=== PATIENT | female | born 1955 | race Caucasian/White ===

== ENCOUNTER 2017-03-30 05:09 | Emergency (ER) | payer MEDICAID ==
[~2017-03-30] VITALS: Ht 152.4 cm; Wt 54.5 kg
[~2017-03-30 05:09] MED LIST: ALPR0.5T8 PO; ASPI-556 PO; CALC600T2 PO; FERR1TAB45 PO; INSLAN SQ; INSU100C3 SQ; LEVO100 PO; MULT1TAB70 PO; PANT40TA25 PO; ROSU10 PO
[2017-03-30] MEDS ORDERED: INSU100V SQ (05:31)
[2017-03-30 05:33] LABS: GLUCOSE,POINT OF CARE 413 MG/DL (70-110)
[2017-03-30 05:59] LABS: HEMATOCRIT 44.4 % (36-46); HEMOGLOBIN 14.6 g/dL (12.0-16.0); MEAN CORPUSCULAR HEMOGLOBIN 29.9 pg (26.0-34.0); MEAN CORPUSCULAR HGB CONC 32.8 G/dL (31.0-37.0); MEAN CORPUSCULAR VOLUME 91 fL (80-100); PLATELET COUNT (AUTO) 148 K/uL (150-450); RED BLOOD CELL COUNT(AUTO) 4.88 MIL/uL (4.00-5.20); RED CELL DISTRIBUTION WIDTH 14.4 % (11.5-14.5)
[2017-03-30 06:08] LABS: CALCIUM, TOTAL 9.3 mg/dL (8.8-10.5); CREATININE 1.09 mg/dL (0.60-1.30); POTASSIUM 4.2 mmol/L (3.5-5.1)
[2017-03-30 06:14] LABS: ALBUMIN 3.8 g/dL (3.4-5.0); BILIRUBIN,TOTAL 0.8 mg/dL (0.1-1.0); TOTAL PROTEIN, SERUM 7.4 g/dL (6.4-8.2)
[2017-03-30 06:31] LABS: EOSINOPHILS % (MANUAL) 1 % (1-6); LYMPHOCYTES % (MANUAL) 22 % (22-44); MONOCYTES % (MANUAL) 5 % (2-9); SEGMENTED NEUTROPHILS % 72 % (40-70)
[2017-03-30 08:19] LABS: APPEARANCE,URINE CLEAR (CLEAR); BILIRUBIN,URINE NEGATIVE (NEGATIVE); GLUCOSE, URINE (UA) >=1000 mg/dL (NEGATIVE); KETONES,URINE 40 mg/dL (NEGATIVE); LEUKOCYTE ESTERASE ,URINE NEGATIVE (NEGATIVE); NITRATE,URINE NEGATIVE (NEGATIVE); OCCULT BLOOD,URINE NEGATIVE (NEGATIVE); PH,URINE 5.5 (5.0-8.0); PROTEIN,URINE NEGATIVE (NEGATIVE); UROBILINOGEN,URINE 0.2 mg/dL (<=1.0)
[2017-03-30 08:25] LABS: ANION GAP 11 mmol/L (8-16); CALCIUM, TOTAL 9.5 mg/dL (8.8-10.5); CARBON DIOXIDE 28 mmol/L (22-29); CHLORIDE 98 mmol/L (98-107); CREATININE 0.89 mg/dL (0.60-1.30); GLOMERULAR FILTR. RATE CALC > 60 mL/min (>60); GLUCOSE,RANDOM 322 mg/dL (70-110); POTASSIUM 4.1 mmol/L (3.5-5.1); SODIUM SERUM 137 mmol/L (136-145); UREA NITROGEN, BLOOD 26 mg/dL (7-18)
[2017-03-30 08:32] LABS: BACTERIA,URINE Rare /HPF (None Seen); RBC,URINE 0-2 /HPF (0-2); SQUAMOUS EPITHELIAL CELL,UR Rare /LPF (None Seen); WBC,URINE 0-2 /HPF (0-5)
[2017-03-30 09:00] VITALS: BP 123/70
== END 2017-03-30 09:44 | disposition home or self-care (01) ==
LOC: EMS 05:10
DX: E10.65 Type 1 diabetes mellitus with hyperglycemia (principal); E03.9 Hypothyroidism, unspecified; F17.210 Nicotine dependence, cigarettes, uncomplicated; Z79.4 Long term (current) use of insulin
CPT/HCPCS: 82962; 85007; 99284

== ENCOUNTER 2018-10-10 07:21 | Emergency (ER) | payer MEDICAID ==
[~2018-10-10] VITALS: Ht 160 cm; Wt 53.2 kg
[~2018-10-10 07:21] MED LIST changes: -INSLAN SQ; -INSU100C3 SQ; +INSU100V SQ; -ROSU10 PO; +ROSU10TA22 PO
[2018-10-10] MEDS ORDERED: INSU100I26 SQ (07:31)
[2018-10-10] MEDS ORDERED: ATOR10TA84 PO (07:34)
[2018-10-10] MEDS ORDERED: SODIUM CHLORIDE 0.9% 1,000 ML IV ONE ×2 (07:45→09:00)
[2018-10-10 08:07] LABS: BASOPHILS % (AUTO) 0.3 % (0.0-2.0); EOSINOPHILS % (AUTO) 1.7 % (1.0-6.0); HEMATOCRIT 43.3 % (36-46); HEMOGLOBIN 13.8 g/dL (12.0-16.0); LYMPHOCYTES # (AUTO) 1.2 K/uL (1.0-4.8); LYMPHOCYTES % (AUTO) 21.1 % (22.0-44.0); MEAN CORPUSCULAR VOLUME 94 fL (80-100); MONOCYTES # (AUTO) 0.3 K/uL (0.1-1.0); MONOCYTES % (AUTO) 6.2 % (2.0-9.0); NEUTROPHILS # (AUTO) 3.8 K/uL (1.8-7.7); NEUTROPHILS % (AUTO) 70.7 % (40.0-70.0); PLATELET COUNT (AUTO) 162 K/uL (150-450); RED BLOOD CELL COUNT(AUTO) 4.61 MIL/uL (4.00-5.20); RED CELL DISTRIBUTION WIDTH 13.8 % (11.5-14.5)
[2018-10-10 08:21] LABS: ALANINE AMINOTRANSFERASE 25 U/L (12-78); ALBUMIN 3.7 g/dL (3.4-5.0); ALKALINE PHOSPHATASE 93 U/L (46-116); ANION GAP 17 mmol/L (8-16); ASPARTATE AMINOTRANSFERASE 20 U/L (15-37); CALCIUM, TOTAL 9.2 mg/dL (8.8-10.5); CARBON DIOXIDE 21 mmol/L (22-29); CHLORIDE 97 mmol/L (98-107); CREATININE 1.24 mg/dL (0.60-1.30); GLOMERULAR FILTR. RATE CALC 44 mL/min (>60); POTASSIUM 3.6 mmol/L (3.5-5.1); SODIUM SERUM 135 mmol/L (136-145); TOTAL PROTEIN, SERUM 7.3 g/dL (6.4-8.2); UREA NITROGEN, BLOOD 33 mg/dL (7-18)
[2018-10-10 08:28] LABS: GLUCOSE,RANDOM 496 mg/dL (70-110)
[2018-10-10] MEDS ORDERED: INSULIN REGULAR, HUMAN 100 UNITS/ML IVP ONE (08:30)
[2018-10-10] MEDS ORDERED: POTASSIUM CHLORIDE 20 MEQ ER TABLET PO ONE (08:30)
[2018-10-10 08:49] LABS: ACETONE,BLOOD TRACE (NEGATIVE)
[2018-10-10 10:06] LABS: APPEARANCE,URINE CLEAR (CLEAR); BILIRUBIN,URINE NEGATIVE (NEGATIVE); GLUCOSE, URINE (UA) >=1000 mg/dL (NEGATIVE); KETONES,URINE >=80 mg/dL (NEGATIVE); LEUKOCYTE ESTERASE ,URINE NEGATIVE (NEGATIVE); NITRATE,URINE NEGATIVE (NEGATIVE); OCCULT BLOOD,URINE TRACE (NEGATIVE); PROTEIN,URINE NEGATIVE (NEGATIVE); UROBILINOGEN,URINE 0.2 mg/dL (<=1.0)
[2018-10-10 10:17] LABS: BACTERIA,URINE None Seen /HPF (None Seen); RBC,URINE 0-2 /HPF (0-2); SQUAMOUS EPITHELIAL CELL,UR Few /LPF (None Seen); WBC,URINE 0-2 /HPF (0-5)
[2018-10-10 11:25] VITALS: BP 109/62
[2018-10-10 11:30] LABS: GLUCOSE,POINT OF CARE 190 MG/DL (70-110)
== END 2018-10-10 11:36 | disposition home or self-care (01) ==
LOC: EMS 07:21
DX: E10.65 Type 1 diabetes mellitus with hyperglycemia (principal); E03.9 Hypothyroidism, unspecified; F41.9 Anxiety disorder, unspecified; M19.90 Unspecified osteoarthritis, unspecified site; F17.210 Nicotine dependence, cigarettes, uncomplicated; Z98.51 Tubal ligation status; Z79.82 Long term (current) use of aspirin; Z79.4 Long term (current) use of insulin
CPT/HCPCS: 36415; 80053; 81001; 82009; 82962; 85025; 96361; 96374; 99283; J1815; J7030

== ENCOUNTER 2023-06-19 18:56 | Emergency (ER) | payer MEDICARE, MEDICAID ==
[~2023-06-19] VITALS: Ht 149.9 cm; Wt 50.0 kg
[~2023-06-19 18:56] MED LIST changes: -ALPR0.5T8 PO; +ATOR10TA PO; -FERR1TAB45 PO; +INSU100I26 SQ; -LEVO100 PO; -PANT40TA25 PO; -ROSU10TA22 PO
[2023-06-19 19:07] VITALS: BP 114/53; PULSE 67; RESP 16; TEMP 98.1
== END 2023-06-19 22:12 | disposition left against medical advice (07) ==
LOC: EMS 18:58
DX: M25.562 Pain in left knee (principal); Z53.21 Procedure and treatment not carried out due to patient leaving prior to being seen by health care provider
CPT/HCPCS: 99281; 73562-TC; Z7502

== ENCOUNTER 2023-06-21 13:43 | Emergency (ER) | payer MEDICARE, MEDICAID ==
[~2023-06-21] VITALS: Ht 149.9 cm; Wt 50.0 kg
[2023-06-21 14:02] VITALS: BP 111/54; PULSE 78; RESP 18; TEMP 98
== END 2023-06-21 16:54 | disposition home or self-care (01) ==
LOC: EMS 13:43
DX: S80.02XD Contusion of left knee, subsequent encounter (principal); S80.212D Abrasion, left knee, subsequent encounter; E11.9 Type 2 diabetes mellitus without complications; I10 Essential (primary) hypertension; F41.9 Anxiety disorder, unspecified; I73.9 Peripheral vascular disease, unspecified; F17.210 Nicotine dependence, cigarettes, uncomplicated; Z98.51 Tubal ligation status; X58.XXXD Exposure to other specified factors, subsequent encounter
CPT/HCPCS: 99281; Z7502